=== PATIENT | female | born 1950 | race Asian ===

== ENCOUNTER → 2020-09-19 12:34 | Outpatient (CLI) | payer MEDICARE, OTHER, SELFPAY ==
--- NOTE | 2020-09-19 12:43 | DI.MG.S_ITS ---
BILATERAL DIGITAL SCREENING MAMMOGRAM 3D/2D WITH CAD: 09/19/2020 CLINICAL: Routine screening. Comparison is made to exams dated: 07/13/2015 mammogram, 12/19/2016 mammogram, and 11/24/2017 mammogram - [facility]. There are scattered fibroglandular elements in both breasts. Current study was also evaluated with a Computer Aided Detection (CAD) system. There is a 0.9 cm irregular equal density focal asymmetry in the right breast at 12 o'clock middle depth. This is more prominent and increased in size. No other significant masses, calcifications, or other findings are seen in either breast. IMPRESSION: INCOMPLETE: NEEDS ADDITIONAL IMAGING EVALUATION The 0.9 cm irregular equal density focal asymmetry in the right breast is indeterminate. Additional views with possible ultrasound are recommended. This exam was interpreted at Station ID: [id number]. NOTE: For mammograms, a report in lay terms will be sent to the patient. Approximately 15% of breast malignancies will not be visualized mammographically. In the management of a palpable breast mass, a negative mammogram must not discourage biopsy of a clinically suspicious lesion. Electronically Signed By: Jordi Mejía M.D. aty/:09/22/2020 07:50:44 letter sent: Additional Imaging Needed ACR BI-RADS Category 0: Incomplete 3340F
== END ==
PROVIDERS: PCP Family Medicine; Referring Provider Family Medicine; Visit Provider Family Medicine
DX: Z12.31 Encounter for screening mammogram for malignant neoplasm of breast (principal)
CPT/HCPCS: 77063; 77067

== ENCOUNTER → 2020-09-23 11:48 | Outpatient (CLI) | payer MEDICARE, OTHER, SELFPAY | PROVIDERS: PCP Family Medicine; Referring Provider Family Medicine; Visit Provider Family Medicine | DX: M85.88 Other specified disorders of bone density and structure, other site (principal); Z78.0 Asymptomatic menopausal state; E11.9 Type 2 diabetes mellitus without complications; Z87.891 Personal history of nicotine dependence; Z82.62 Family history of osteoporosis | CPT/HCPCS: 77080 ==

== ENCOUNTER → 2020-10-14 13:06 | Outpatient (CLI) | payer MEDICARE, OTHER, SELFPAY ==
--- NOTE | 2020-10-14 | DI.US.S_ITS ---
LIMITED ULTRASOUND OF RIGHT BREAST: 10/14/2020 CLINICAL: Patient returns today to evaluate a focal asymmetry in the right breast. Comparison is made to exams dated: 10/14/2020 mammogram, 09/19/2020 mammogram - [facility], 11/24/2017 mammogram, 12/19/2016 mammogram, and 07/13/2015 mammogram - [facility]. Color flow and real-time ultrasound of the right breast 12 o'clock region were performed on the areas of interest. There is a 0.9 cm x 0.4 cm x 0.6 cm oval lobulated cyst with a septated internal wall in the right breast at 12 o'clock anterior depth 6 cm from the nipple. This oval cyst is hypoechoic with internal echoes. This correlates with mammography findings. Color flow imaging demonstrates that there is no vascularity present. IMPRESSION: PROBABLY BENIGN The 0.9 cm x 0.4 cm x 0.6 cm oval cyst in the right breast is consistent with a complicated cyst and is probably benign. A follow-up ultrasound in 6 months is recommended. A follow-up ultrasound in 6 months is recommended to demonstrate stability. This exam was interpreted at Station ID: [id number]. Electronically Signed By: Jasbir Myers M.D. ddjerry/:10/14/2020 13:56:41 letter sent: Followup Recommended Ultrasound BI-RADS: 3 Probably benign
--- NOTE | 2020-10-14 | DI.MG.S_ITS ---
UNILATERAL RIGHT DIGITAL DIAGNOSTIC MAMMOGRAM 3D/2D WITH ADDITIONAL VIEWS: 10/14/2020 CLINICAL: Additional evaluation requested from prior study. Comparison is made to exams dated: 09/19/2020 mammogram - [facility], 11/24/2017 mammogram, and 12/19/2016 mammogram - [facility]. There are scattered fibroglandular elements in right breast. There is a 0.8 cm oval equal density mass with an obscured and circumscribed margin in the right breast at 12 o'clock middle depth. No other significant masses or calcifications are seen in the breast. IMPRESSION: INCOMPLETE: NEEDS ADDITIONAL IMAGING EVALUATION The 0.8 cm oval equal density mass in the right breast is indeterminate. An ultrasound is recommended. Ultrasound will be performed immediately following the current exam. This exam was interpreted at Station ID: [id number]. NOTE: For mammograms, a report in lay terms will be sent to the patient. Approximately 15% of breast malignancies will not be visualized mammographically. In the management of a palpable breast mass, a negative mammogram must not discourage biopsy of a clinically suspicious lesion. Electronically Signed By: Jasbir Myers M.D. ddp/:10/14/2020 13:37:14 ACR BI-RADS Category 0: Incomplete 3340F
== END ==
PROVIDERS: PCP Family Medicine; Referring Provider Family Medicine; Visit Provider Family Medicine
DX: R92.8 Other abnormal and inconclusive findings on diagnostic imaging of breast (principal); N60.01 Solitary cyst of right breast
CPT/HCPCS: 76642; 77065; G0279

== ENCOUNTER → 2021-04-02 13:27 | Outpatient (CLI) | payer MEDICARE, OTHER, SELFPAY ==
--- NOTE | 2021-04-02 13:29 | DI.US.S_ITS ---
LIMITED ULTRASOUND OF RIGHT BREAST: 04/02/2021 CLINICAL: 6 month follow-up of cysts. Comparison is made to exams dated: 10/14/2020 ultrasound, 10/14/2020 mammogram, 09/19/2020 mammogram - [facility], 11/24/2017 mammogram, and 12/19/2016 mammogram - [facility]. Color flow and real-time ultrasound of the right breast 12 o'clock region were performed. Guidry scale images of the real-time examination were reviewed. There is a stable 1 cm x 0.7 cm x 0.3 cm oval cyst with a septated internal wall in the right breast at 12 o'clock anterior depth 6 cm from the nipple. This oval cyst is hypoechoic with internal echoes. This correlates with mammography findings. Color flow imaging demonstrates that there is no vascularity present. IMPRESSION: PROBABLY BENIGN Stable 1 cm oval cyst in the right breast is consistent with a complicated cyst and is probably benign. A follow-up ultrasound in 6 months is recommended to demonstrate stability. Patient will be due for bilateral mammogram at that time. Exam findings were conveyed to the patient. This exam was interpreted at Station ID: [id number]. Electronically Signed By: Nathaniel De Jesus M.D. slc/:04/02/2021 14:16:05 letter sent: Followup Recommended Ultrasound BI-RADS: 3 Probably benign
== END ==
PROVIDERS: PCP Family Medicine; Referring Provider Family Medicine; Visit Provider Family Medicine
DX: N60.01 Solitary cyst of right breast (principal)
CPT/HCPCS: 76642